=== PATIENT | male | born 1985 | race Caucasian/White ===

== ENCOUNTER 2016-11-17 11:10 | Emergency (ER) | payer SELFPAY ==
[2016-11-17 11:40] VITALS: BP 132/75
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
== END 2016-11-17 13:30 | disposition home or self-care (01) ==
LOC: KA.ED 11:10
DX: S49.91XA Unspecified injury of right shoulder and upper arm, initial encounter (principal); S00.11XA Contusion of right eyelid and periocular area, initial encounter; S00.81XA Abrasion of other part of head, initial encounter; Z88.6 Allergy status to analgesic agent; V40.5XXA Car driver injured in collision with pedestrian or animal in traffic accident, initial encounter
CPT/HCPCS: 70450; 71020; 73030-RT; 99283; 99284